=== PATIENT | male | born 1950 | race Caucasian/White ===

== ENCOUNTER 2021-02-06 12:39 | Inpatient (IN) | payer BC ==
[~2021-02-06] VITALS: Ht 182.9 cm; Wt 107.0 kg
--- NOTE | 2021-02-06 13:26 | NUR ---
DIRECT [facility] [place] FOR DR GOETZ [facility] ASSIST[facility]
--- NOTE | 2021-02-06 14:13 | NUR ---
patient room to 22
[2021-02-06] MEDS ORDERED: SODIUM CHLORIDE 0.9% 1,000ML IVBOLUS ONE (14:30)
[2021-02-06] MEDS ORDERED: ONDANSETRON 2MG/ML, 2ML IVPush ONE (14:30)
[2021-02-06] MEDS ORDERED: MORPHINE SULFATE 4 MG/ML, 1ML IVPush PRN (14:30)
--- NOTE | 2021-02-06 14:38 | NUR ---
PT STATES TRAUMA TO LEFT TESTICLE A COUPLE MONTHS AGO. PAIN AND SWELLING HAS BEEN INCREASING. SEEN AT UROLOGY THIS AM, TWO I&D SITES WITH PACKING TO LEFT TESTICLE. PT DENIES PAIN AT THIS TIME. PT CONNECTED TO MONITORING. CALL LIGHT IN REACH. PIV PLACED, LABS DRAWN AND COLLECTED BY STITCH BURNISHER. Addendum: 02/06/21 at 1442 by [email or web address] PT DENIES CHILLS, FEVERS, TROUBLE URINATING.
[2021-02-06 14:50] LABS: BASOPHILS % (AUTO) 1 % (0-1); EOSINOPHILS % (AUTO) 2 % (1-7); LYMPHOCYTES % (AUTO) 12 % (22-44); MEAN CORPUSCULAR HGB CONC 34.7 g/dL (33.2-36.2); MEAN PLATELET VOLUME 6.7 fL (7.4-10.4); MONOCYTES % (AUTO) 6 % (2-9); NEUTROPHILS % (AUTO) 80 % (42-75); PLATELET COUNT 322 x10^3/uL (130-400); RED BLOOD COUNT 5.26 x10^6/uL (4.38-5.82); RED CELL DISTRIBUTION WIDTH 14.8 % (9.4-14.8)
[2021-02-06 14:51] LABS: ANION GAP 8 mmol/L (5-15); CALCIUM 9.2 mg/dL (8.5-10.1); CHLORIDE 106 mmol/L (98-107); CREATININE 0.96 mg/dL (0.7-1.3)
--- NOTE | 2021-02-06 15:17 | NUR ---
THIS RN COLLECTED RAPID COVID SWAB AND TAKEN TO LAB. PT UPDATED ON POC.
[2021-02-06] MEDS ORDERED: ONDANSETRON 2MG/ML, 2ML ONE (15:35)
[2021-02-06] MEDS ORDERED: MORPHINE SULFATE 4 MG/ML, 1ML ONE (15:36)
--- NOTE | 2021-02-06 15:45 | NUR ---
PT STATES PAIN IS INCREASING IN GROIN AREA. MORPINE 2MG IV ADMIN. PT CONNECTED TO MONITORING. CALL LIGHT IN REACH.
[2021-02-06] MEDS ORDERED: LABETALOL 5MG/ML, 20ML ONE (16:36)
--- NOTE | 2021-02-06 16:43 | NUR ---
BP MEDS ADMIN PER OCT.
[2021-02-06] MEDS ORDERED: LABETALOL 5MG/ML, 20ML IVPush ONE (17:00)
--- NOTE | 2021-02-06 17:04 | NUR ---
REPORT GIVEN TO MISTY COLLINS. PT RTG TO ROOM 476
[2021-02-06 17:36] VITALS: BP 189/114
[2021-02-06] MEDS ORDERED: PHARMACOKINETIC CONSULTATION MC ONE (19:00)
[2021-02-06] MEDS ORDERED: ACETAMINOPHEN 325 MG TABLET PO PRN (19:00)
[2021-02-06] MEDS ORDERED: PHARMACOKINETIC MONITORING MC PRN (19:00)
[2021-02-06] MEDS ORDERED: morphine SULFATE 10 MG/ML, 1ML IVPush PRN (19:00)
[2021-02-06] MEDS ORDERED: POLYETHYLENE GLYCOL 17 GM PACKET PO PRN (19:00)
[2021-02-06] MEDS ORDERED: ONDANSETRON 2MG/ML, 2ML IVPush PRN (19:00)
[2021-02-06] MEDS ORDERED: VANCOMYCIN PER PHARMACY MC PRN (19:00)
[2021-02-06] MEDS ORDERED: VANCOMYCIN PMX 1GM/200ML 200 ML IV ONE (19:00)
[2021-02-06] MEDS: SODIUM CHLORIDE 0.9% 1,000 ML IV SCH (19:58)
[2021-02-06] MEDS: PIPERACILLIN/TAZO 3.375 GM in DEXTROSE 5% 50 ML IV SCH (19:58)
[2021-02-06] MEDS ORDERED: VANCOMYCIN 2,500 MG in SODIUM CHLORIDE 0.9% 500 ML IV ONE (20:00)
[2021-02-06 20:11] VITALS: BP 123/74
[2021-02-06 20:13] VITALS: BP 181/97
[2021-02-06] MEDS: HYDROcodone/APAP 5/325 TABLET PO PRN (21:03)
[2021-02-07] VITALS (7 sets, daily range): BP systolic 142–185; BP diastolic 87–111
[2021-02-07] MEDS: PIPERACILLIN/TAZO 3.375 GM in DEXTROSE 5% 50 ML IV SCH ×4 (01:32→19:22)
[2021-02-07 05:33] LABS: BASOPHILS % (AUTO) 1 % (0-1); EOSINOPHILS % (AUTO) 2 % (1-7); LYMPHOCYTES % (AUTO) 14 % (22-44); MEAN CORPUSCULAR HEMOGLOBIN 28.5 pg (27.5-34.5); MEAN CORPUSCULAR HGB CONC 33.7 g/dL (33.2-36.2); MEAN PLATELET VOLUME 6.6 fL (7.4-10.4); MONOCYTES % (AUTO) 8 % (2-9); NEUTROPHILS % (AUTO) 75 % (42-75); PLATELET COUNT 274 x10^3/uL (130-400); RED BLOOD COUNT 4.46 x10^6/uL (4.38-5.82); RED CELL DISTRIBUTION WIDTH 14.2 % (9.4-14.8)
[2021-02-07 05:41] LABS: CALCIUM 8.4 mg/dL (8.5-10.1); CHLORIDE 109 mmol/L (98-107)
[2021-02-07 05:47] LABS: ALANINE AMINOTRANSFERASE 28 U/L (12-78); ALKALINE PHOSPHATASE 70 U/L (45-117); ANION GAP 8 mmol/L (5-15); BILIRUBIN,TOTAL 0.6 mg/dL (0.2-1.0); CREATININE 0.97 mg/dL (0.7-1.3); TOTAL PROTEIN 6.2 g/dL (6.4-8.2)
[2021-02-07] MEDS: ENALAPRILAT 1.25 MG/ML, 1ML IVPush PRN ×2 (06:52→19:39)
[2021-02-07] MEDS ORDERED: BUPIVACAINE/PF 0.25% ONE (07:40)
[2021-02-07] MEDS: LABETALOL 5MG/ML, 20ML IVPush PRN (08:11)
[2021-02-07] MEDS: SENNA/DOCUSATE TABLET PO SCH (08:16)
[2021-02-07] MEDS ORDERED: KETOROLAC 30 MG/1 ML ONE (10:19)
[2021-02-07] MEDS ORDERED: PROPOFOL 10 MG/ML, 20ML ONE (10:19)
[2021-02-07] MEDS ORDERED: CEFAZOLIN 1,000 MG ONE (10:19)
[2021-02-07] MEDS ORDERED: LIDOCAINE 1%, 20ML ONE (10:19)
[2021-02-07] MEDS ORDERED: ONDANSETRON 2MG/ML, 2ML ONE (10:19)
[2021-02-07] MEDS ORDERED: DEXAMETHASONE 4 MG/ML, 1ML ONE (10:19)
[2021-02-07] MEDS ORDERED: FENTANYL PF 250 MCG/5ML ONE (10:27)
[2021-02-07] MEDS ORDERED: FENTANYL PF 100 MCG/2ML ONE ×2 (11:26→11:41)
[2021-02-07] MEDS ORDERED: OXYcodone 5 MG/5 ML ORAL.SOL UDC ONE (11:41)
[2021-02-07] MEDS: FENTANYL PF 100 MCG/2ML IV PRN ×3 (11:44→12:45)
[2021-02-07] MEDS ORDERED: OXYcodone 5 MG/5 ML ORAL.SOL UDC PO PRN (12:00)
[2021-02-07] MEDS ORDERED: MEPERIDINE/PF 25MG/0.5ML IVPush PRN (12:00)
[2021-02-07] MEDS ORDERED: METHOCARBAMOL 1,000 MG in DEXTROSE 5% 100 ML IV PRN (12:00)
[2021-02-07] MEDS ORDERED: ONDANSETRON 2MG/ML, 2ML IVPush PRN (12:00)
[2021-02-07] MEDS ORDERED: PROMETHAZINE 25 MG/ML, 1ML IVPush PRN (12:00)
[2021-02-07] MEDS ORDERED: HYDROmorphone 1 MG/ML, 1ML INJ IVPush PRN (12:00)
[2021-02-07] MEDS ORDERED: hydrALAzine 20 MG/ML, 1ML ONE (12:06)
[2021-02-07] MEDS ORDERED: hydrALAzine 20 MG/ML, 1ML IV ONE (12:30)
[2021-02-07] MEDS: HYDROcodone/APAP 5/325 TABLET PO PRN ×2 (14:43→19:37)
[2021-02-07] MEDS: SODIUM CHLORIDE 0.9% 1,000 ML IV SCH (15:57)
[2021-02-07] MEDS: VANCOMYCIN 2,000 MG in SODIUM CHLORIDE 0.9% 500 ML IV SCH (21:07)
[2021-02-08] VITALS (15 sets, daily range): BP systolic 156–197; BP diastolic 94–118
[2021-02-08] MEDS: PIPERACILLIN/TAZO 3.375 GM in DEXTROSE 5% 50 ML IV SCH ×4 (01:55→20:07)
[2021-02-08] MEDS: ENALAPRILAT 1.25 MG/ML, 1ML IVPush PRN ×2 (02:01→11:35)
[2021-02-08] MEDS: LABETALOL 5MG/ML, 20ML IVPush PRN ×3 (03:23→14:00)
[2021-02-08 05:39] LABS: BASOPHILS % (AUTO) 1 % (0-1); EOSINOPHILS % (AUTO) 1 % (1-7); LYMPHOCYTES % (AUTO) 10 % (22-44); MEAN CORPUSCULAR HEMOGLOBIN 28.5 pg (27.5-34.5); MEAN PLATELET VOLUME 6.8 fL (7.4-10.4); MONOCYTES % (AUTO) 8 % (2-9); NEUTROPHILS % (AUTO) 81 % (42-75); PLATELET COUNT 261 x10^3/uL (130-400); RED BLOOD COUNT 4.71 x10^6/uL (4.38-5.82); RED CELL DISTRIBUTION WIDTH 14.8 % (9.4-14.8)
[2021-02-08 05:53] LABS: ALANINE AMINOTRANSFERASE 24 U/L (12-78); ALBUMIN 3.1 g/dL (3.4-5.0); ANION GAP 5 mmol/L (5-15); CALCIUM 8.3 mg/dL (8.5-10.1); CHLORIDE 109 mmol/L (98-107)
[2021-02-08 05:55] LABS: ALKALINE PHOSPHATASE 72 U/L (45-117); BILIRUBIN,TOTAL 0.6 mg/dL (0.2-1.0); TOTAL PROTEIN 6.4 g/dL (6.4-8.2)
[2021-02-08] MEDS: HYDROcodone/APAP 5/325 TABLET PO PRN ×3 (06:07→18:38)
[2021-02-08] MEDS: SODIUM CHLORIDE 0.9% 1,000 ML IV SCH ×2 (06:08→15:55)
[2021-02-08] MEDS: SENNA/DOCUSATE TABLET PO SCH (07:45)
[2021-02-08] MEDS: LISINOPRIL 5 MG TABLET PO SCH ×2 (09:16→20:09)
[2021-02-08] MEDS: ENOXAPARIN 40 MG/0.4 ML SQ SCH (15:56)
[2021-02-08] MEDS: VANCOMYCIN 2,000 MG in SODIUM CHLORIDE 0.9% 500 ML IV SCH (21:40)
[2021-02-09] VITALS (11 sets, daily range): BP systolic 150–192; BP diastolic 85–111
[2021-02-09] MEDS: ENALAPRILAT 1.25 MG/ML, 1ML IVPush PRN ×2 (01:00→10:36)
[2021-02-09] MEDS: PIPERACILLIN/TAZO 3.375 GM in DEXTROSE 5% 50 ML IV SCH ×4 (01:35→20:36)
[2021-02-09] MEDS: HYDROcodone/APAP 5/325 TABLET PO PRN ×6 (01:51→23:15)
[2021-02-09 05:40] LABS: CHLORIDE 108 mmol/L (98-107)
[2021-02-09 05:47] LABS: BASOPHILS % (AUTO) 1 % (0-1); EOSINOPHILS % (AUTO) 3 % (1-7); LYMPHOCYTES % (AUTO) 12 % (22-44); MEAN CORPUSCULAR HEMOGLOBIN 28.7 pg (27.5-34.5); MEAN CORPUSCULAR HGB CONC 34.3 g/dL (33.2-36.2); MEAN PLATELET VOLUME 6.8 fL (7.4-10.4); MONOCYTES % (AUTO) 9 % (2-9); NEUTROPHILS % (AUTO) 75 % (42-75); PLATELET COUNT 241 x10^3/uL (130-400); RED BLOOD COUNT 4.63 x10^6/uL (4.38-5.82); RED CELL DISTRIBUTION WIDTH 14.7 % (9.4-14.8)
[2021-02-09 05:55] LABS: ALANINE AMINOTRANSFERASE 19 U/L (12-78); ALBUMIN 2.9 g/dL (3.4-5.0); ALKALINE PHOSPHATASE 64 U/L (45-117); ANION GAP 4 mmol/L (5-15); BILIRUBIN,TOTAL 0.7 mg/dL (0.2-1.0); CALCIUM 8.7 mg/dL (8.5-10.1); CREATININE 1.22 mg/dL (0.7-1.3); TOTAL PROTEIN 6.3 g/dL (6.4-8.2)
[2021-02-09] MEDS: SENNA/DOCUSATE TABLET PO SCH (08:21)
[2021-02-09] MEDS: LISINOPRIL 5 MG TABLET PO SCH (08:21)
[2021-02-09] MEDS ORDERED: LISINOPRIL 5 MG TABLET ONE (10:30)
[2021-02-09] MEDS: LISINOPRIL 10 MG TABLET PO SCH ×2 (10:37→21:48)
[2021-02-09] MEDS: ENOXAPARIN 40 MG/0.4 ML SQ SCH (17:34)
[2021-02-09] MEDS ORDERED: ENALAPRILAT 1.25 MG/ML, 1ML IVPush PRN (19:00)
[2021-02-09] MEDS ORDERED: LABETALOL 5MG/ML, 20ML IVPush PRN (19:00)
[2021-02-10 00:06] VITALS: BP 135/88
[2021-02-10] MEDS: PIPERACILLIN/TAZO 3.375 GM in DEXTROSE 5% 50 ML IV SCH ×4 (02:06→20:33)
[2021-02-10 02:20] VITALS: BP 121/79
[2021-02-10 06:04] LABS: BASOPHILS % (AUTO) 1 % (0-1); EOSINOPHILS % (AUTO) 5 % (1-7); LYMPHOCYTES % (AUTO) 12 % (22-44); MEAN CORPUSCULAR HEMOGLOBIN 28.8 pg (27.5-34.5); MONOCYTES % (AUTO) 9 % (2-9); NEUTROPHILS % (AUTO) 73 % (42-75); PLATELET COUNT 250 x10^3/uL (130-400); RED CELL DISTRIBUTION WIDTH 14.8 % (9.4-14.8)
[2021-02-10 06:13] LABS: ANION GAP 4 mmol/L (5-15); CALCIUM 8.8 mg/dL (8.5-10.1); CHLORIDE 110 mmol/L (98-107); CREATININE 1.14 mg/dL (0.7-1.3)
[2021-02-10 07:19] VITALS: BP 174/108
[2021-02-10] MEDS: HYDROcodone/APAP 5/325 TABLET PO PRN ×4 (07:58→21:04)
[2021-02-10] MEDS: SENNA/DOCUSATE TABLET PO SCH (07:58)
[2021-02-10] MEDS: LISINOPRIL 10 MG TABLET PO SCH ×2 (07:59→20:41)
[2021-02-10 13:23] VITALS: BP 177/107
[2021-02-10] MEDS: ENOXAPARIN 40 MG/0.4 ML SQ SCH (16:00)
[2021-02-10 20:09] VITALS: BP 171/101
[2021-02-11] MEDS: HYDROcodone/APAP 5/325 TABLET PO PRN ×4 (01:18→19:53)
[2021-02-11 01:20] VITALS: BP 163/96
[2021-02-11] MEDS: PIPERACILLIN/TAZO 3.375 GM in DEXTROSE 5% 50 ML IV SCH ×4 (02:37→20:27)
[2021-02-11 05:11] LABS: BASOPHILS % (AUTO) 1 % (0-1); EOSINOPHILS % (AUTO) 6 % (1-7); LYMPHOCYTES % (AUTO) 15 % (22-44); MEAN CORPUSCULAR HEMOGLOBIN 28.6 pg (27.5-34.5); MEAN CORPUSCULAR HGB CONC 34.3 g/dL (33.2-36.2); MEAN PLATELET VOLUME 6.6 fL (7.4-10.4); MONOCYTES % (AUTO) 10 % (2-9); NEUTROPHILS % (AUTO) 67 % (42-75); PLATELET COUNT 270 x10^3/uL (130-400); RED BLOOD COUNT 4.61 x10^6/uL (4.38-5.82); RED CELL DISTRIBUTION WIDTH 14.6 % (9.4-14.8)
[2021-02-11 05:27] LABS: ANION GAP 4 mmol/L (5-15); CALCIUM 8.8 mg/dL (8.5-10.1); CHLORIDE 109 mmol/L (98-107); CREATININE 1.29 mg/dL (0.7-1.3)
[2021-02-11 07:18] VITALS: BP 177/105
[2021-02-11] MEDS: LISINOPRIL 20 MG TABLET PO SCH ×2 (08:36→20:29)
[2021-02-11] MEDS: SENNA/DOCUSATE TABLET PO SCH (08:36)
[2021-02-11] MEDS: HEPARIN 5,000 UNITS/ML, 1ML SQ SCH ×2 (08:53→17:44)
[2021-02-11] MEDS: CARVEDILOL 3.125 MG TABLET PO SCH ×2 (08:57→17:43)
[2021-02-11] MEDS ORDERED: ACETAMINOPHEN 325 MG TABLET PO PRN (09:00)
[2021-02-11 12:57] VITALS: BP 184/98
[2021-02-11] MEDS: morphine SULFATE 10 MG/ML, 1ML IVPush PRN ×2 (15:31→15:55)
[2021-02-11 20:26] VITALS: BP 185/92
[2021-02-12 01:31] VITALS: BP 168/98
[2021-02-12] MEDS: HEPARIN 5,000 UNITS/ML, 1ML SQ SCH ×3 (01:44→17:25)
[2021-02-12] MEDS: PIPERACILLIN/TAZO 3.375 GM in DEXTROSE 5% 50 ML IV SCH ×4 (03:00→22:07)
[2021-02-12] MEDS: HYDROcodone/APAP 5/325 TABLET PO PRN ×2 (03:16→20:48)
[2021-02-12 05:43] VITALS: BP 151/89
[2021-02-12] MEDS: CARVEDILOL 3.125 MG TABLET PO SCH ×2 (05:44→17:28)
[2021-02-12 07:29] VITALS: BP 162/100
[2021-02-12] MEDS: SENNA/DOCUSATE TABLET PO SCH (09:00)
[2021-02-12] MEDS: ISOSORBIDE DINITRATE 10 MG TABLET PO SCH ×3 (09:59→22:00)
[2021-02-12] MEDS: LISINOPRIL 20 MG TABLET PO SCH ×2 (10:00→22:01)
[2021-02-12 13:17] VITALS: BP 159/89
[2021-02-12 18:43] VITALS: BP 173/87
[2021-02-13 01:20] VITALS: BP 150/70
[2021-02-13] MEDS: HEPARIN 5,000 UNITS/ML, 1ML SQ SCH ×3 (01:49→16:36)
[2021-02-13] MEDS: PIPERACILLIN/TAZO 3.375 GM in DEXTROSE 5% 50 ML IV SCH ×3 (03:58→16:00)
[2021-02-13] MEDS: CARVEDILOL 3.125 MG TABLET PO SCH ×2 (06:38→16:33)
[2021-02-13] MEDS: HYDROcodone/APAP 5/325 TABLET PO PRN ×2 (06:40→16:44)
[2021-02-13 07:32] VITALS: BP 179/100
[2021-02-13] MEDS: LISINOPRIL 20 MG TABLET PO SCH (09:24)
[2021-02-13] MEDS: ISOSORBIDE DINITRATE 10 MG TABLET PO SCH ×2 (09:25→16:33)
[2021-02-13] MEDS: SENNA/DOCUSATE TABLET PO SCH (09:31)
[2021-02-13] MEDS ORDERED: MORPHINE SULFATE 4 MG/ML, 1ML IVPush PRN (10:00)
[2021-02-13] MEDS ORDERED: HYDR-2214 PO (10:20)
[2021-02-13] MEDS ORDERED: ACET325T26 PO (10:20)
[2021-02-13] MEDS ORDERED: ISOS10TA2 PO (10:20)
[2021-02-13] MEDS ORDERED: HYDR-3341 PO (10:20)
[2021-02-13] MEDS ORDERED: SENN-211 PO (10:20)
[2021-02-13] MEDS ORDERED: LISI-170 PO (10:20)
[2021-02-13] MEDS ORDERED: CARV3.1212 PO (10:20)
[2021-02-13 15:20] VITALS: BP 148/84
== END 2021-02-13 18:15 | DRG 711 ==
LOC: ED 15:15 → EDIP 15:24 → 4NE 17:21
PROVIDERS: ADMIT Internal Medicine; ATTEND Internal Medicine
PROC: 0VBB0ZZ Excision of Left Testis, Open Approach (ICD-10-PCS; principal; 2021-02-07 10:30)
PROC: 02HV33Z Insertion of Infusion Device into Superior Vena Cava, Percutaneous Approach (ICD-10-PCS; 2021-02-10)
PROC: B548ZZA Ultrasonography of Superior Vena Cava, Guidance (ICD-10-PCS; 2021-02-10)
PROC: B5181ZA Fluoroscopy of Superior Vena Cava using Low Osmolar Contrast, Guidance (ICD-10-PCS; 2021-02-10)
DX: N49.2 Inflammatory disorders of scrotum (principal); Z16.30 Resistance to unspecified antimicrobial drugs; N49.3 Fournier gangrene; Z20.822 Contact with and (suspected) exposure to COVID-19; B96.89 Other specified bacterial agents as the cause of diseases classified elsewhere; B96.1 Klebsiella pneumoniae [K. pneumoniae] as the cause of diseases classified elsewhere; E66.9 Obesity, unspecified; F41.9 Anxiety disorder, unspecified; I10 Essential (primary) hypertension; N43.3 Hydrocele, unspecified; W23.0XXA Caught, crushed, jammed, or pinched between moving objects, initial encounter; X58.XXXA Exposure to other specified factors, initial encounter; Z68.32 Body mass index [BMI] 32.0-32.9, adult; Y93.89 Activity, other specified; Y92.89 Other specified places as the place of occurrence of the external cause; Y99.8 Other external cause status
CPT/HCPCS: 36415; 96374; 96375; 99285; J3490; 36573; 71045; 72193; 80048; 80053; 80202; 82040; 83880; 85025; 87070; 87075; 87076; 87077; 87186; 87205; 87635; 88305; 93005; 93970; G0378; J0690; J1100; J1644; J1650; J1885; J2405; J2543; J2704; J3010; J3370; C1751; J2270; J7030; J7040

== ENCOUNTER 2021-03-16 12:22 | Emergency (ER) | payer BC ==
[~2021-03-16] VITALS: Ht 182.9 cm; Wt 107.2 kg
[~2021-03-16 12:22] MED LIST: ACET325T26 PO; CARV3.1212 PO; HYDR-2214 PO; HYDR-3341 PO; ISOS10TA2 PO; LISI-170 PO; SENN-211 PO
--- NOTE | 2021-03-16 12:45 | NUR ---
PT TAKEN OFF OF METOPROLOL X1 WEEK AGO, PT REPORTS SWELLING IN LEGS SINCE DC'ED FROM [facility].
[2021-03-16 13:24] LABS: ALANINE AMINOTRANSFERASE 26 U/L (12-78); ALBUMIN 3.4 g/dL (3.4-5.0); ANION GAP 3 mmol/L (5-15); CALCIUM 8.9 mg/dL (8.5-10.1); CHLORIDE 110 mmol/L (98-107); CREATININE 0.97 mg/dL (0.7-1.3)
--- NOTE | 2021-03-16 13:24 | NUR ---
task RN: US at bedside
[2021-03-16 13:27] LABS: BASOPHILS % (AUTO) 1 % (0-1); EOSINOPHILS % (AUTO) 3 % (1-7); LYMPHOCYTES % (AUTO) 16 % (22-44); MEAN CORPUSCULAR HEMOGLOBIN 28.6 pg (27.5-34.5); MEAN CORPUSCULAR HGB CONC 34.1 g/dL (33.2-36.2); MEAN PLATELET VOLUME 7.3 fL (7.4-10.4); MONOCYTES % (AUTO) 8 % (2-9); NEUTROPHILS % (AUTO) 72 % (42-75); PLATELET COUNT 230 x10^3/uL (130-400); RED BLOOD COUNT 4.66 x10^6/uL (4.38-5.82); RED CELL DISTRIBUTION WIDTH 15.6 % (9.4-14.8)
[2021-03-16 13:29] LABS: ALKALINE PHOSPHATASE 74 U/L (45-117); BILIRUBIN,TOTAL 0.4 mg/dL (0.2-1.0); TOTAL PROTEIN 6.7 g/dL (6.4-8.2)
[2021-03-16 14:26] VITALS: BP 165/89
== END 2021-03-16 14:31 | disposition home or self-care (01) ==
LOC: ED 13:39
DX: L03.116 Cellulitis of left lower limb (principal); R60.0 Localized edema; I10 Essential (primary) hypertension
CPT/HCPCS: 36415; 80053; 83880; 85025; 93970; 99284